=== PATIENT | female | born 1935 | race Caucasian/White ===

== ENCOUNTER → 2016-03-17 | Outpatient (CLI) | payer MEDICARE, OTHER | LOC: RAD 17:44 | PROVIDERS: ATTEND Physician Assistant | DX: S09.90XA Unspecified injury of head, initial encounter (principal); X58.XXXA Exposure to other specified factors, initial encounter; Y93.9 Activity, unspecified; Y92.9 Unspecified place or not applicable | CPT/HCPCS: 70450 ==

== ENCOUNTER → 2017-09-14 | Outpatient (CLI) | payer MEDICARE ==
[2017-09-14 16:35] LABS: ABSOLUTE EOSINOPHILS # (AUTO) 0.3 10^3/uL (0.0-0.6); ABSOLUTE LYMPHOCYTES (AUTO) 1.9 10^3/uL (0.5-4.7); ABSOLUTE MONOCYTES (AUTO) 0.6 10^3/uL (0.1-1.4); ABSOLUTE NEUT (AUTO) 3.6 10^3/uL (1.7-8.2); BASOPHILS % (AUTO) 0.6 % (0-2); EOSINOPHILS % (AUTO) 4.9 % (0-6); HEMATOCRIT 40.6 % (36.0-47.0); HEMOGLOBIN 13.9 g/dL (12.0-15.5); MEAN CORPUSCULAR HEMOGLOBIN 31.1 pg (27.0-33.4); MEAN CORPUSCULAR HGB CONC 34.2 g/dL (32.0-36.0); MEAN CORPUSCULAR VOLUME 91 fl (80-97); MONOCYTES % (AUTO) 8.6 % (3-13); PLATELET COUNT 231 10^3/uL (150-450); RED BLOOD COUNT 4.46 10^6/uL (3.72-5.28); RED CELL DISTRIBUTION WIDTH 14.4 % (11.5-14.0); SEGMENTED NEUTROPHILS % (AUTO) 55.9 % (42-78); TOTAL CELLS COUNTED % (AUTO) 100 %; WHITE BLOOD COUNT 6.4 10^3/uL (4.0-10.5)
[2017-09-14 16:59] LABS: ALANINE AMINOTRANSFERASE 28 U/L (9-52); ALBUMIN 4.7 g/dL (3.5-5.0); ALKALINE PHOSPHATASE 70 U/L (38-126); ANION GAP 16 (5-19); ASPARTATE AMINO TRANSFERASE 19 U/L (14-36); BILIRUBIN,DIRECT 0.3 mg/dL (0.0-0.4); BILIRUBIN,TOTAL 0.9 mg/dL (0.2-1.3); BLOOD UREA NITROGEN 13 mg/dL (7-20); CARBON DIOXIDE 23 mmol/L (22-30); CHLORIDE 104 mmol/L (98-107); CHOLESTEROL 141.13 mg/dL (0-200); GLUCOSE 97 mg/dL (75-110); POTASSIUM 4.1 mmol/L (3.6-5.0); TOTAL PROTEIN 8.3 g/dL (6.3-8.2); TRIGLYCERIDES 227 mg/dL (<150)
[2017-09-14 17:11] LABS: DIRECT LDL 69 mg/dL (<100)
[2017-09-14 17:51] LABS: VLDL CHOLESTEROL 45.4 mg/dL (10-31)
[2017-09-14 18:14] LABS: FREE T3 3.52 pg/mL (2.77-5.27); FREE T4 (FREE THYROXINE) 1.07 ng/dL (0.78-2.19)
[2017-09-14 18:28] LABS: THYROID STIMULATING HORMONE 2.06 uIU/mL (0.47-4.68)
== END ==
LOC: OD 15:53
PROVIDERS: ATTEND Family Medicine
DX: D64.9 Anemia, unspecified (principal); E03.9 Hypothyroidism, unspecified; E78.2 Mixed hyperlipidemia; I10 Essential (primary) hypertension
CPT/HCPCS: 36415; 80053; 80061; 82306; 82607; 84439; 84443; 84481; 85025

== ENCOUNTER 2017-09-16 23:08 | Emergency (ER) | payer MEDICARE ==
[2017-09-17] MEDS ORDERED: ACETAMINOPHEN 325 MG TABLET PO ONE (00:31)
--- NOTE | 2017-09-17 00:36 | ER Document Report ---
ED Medical Screen (RME) - General Chief Complaint: Back Injury Stated Complaint: FALL/HEAD INJURY Time Seen by Provider: 09/17/17 00:27 Mode of Arrival: Ambulatory Information source: Patient Notes: Patient is an 82-year-old female with history of stroke who presents to the ER today for low back pain and headache after she fell down a few stairs tonight. Patient states that because of her history of stroke she sometimes loses her footing and that is what happened tonight. Patient did not lose consciousness, is not on any blood thinners but is complaining of some pain to the back of the head. TRAVEL OUTSIDE OF THE [place] IN LAST 30 DAYS: No - Related Data Allergies/Adverse Reactions: No Known Allergies Allergy (Unverified 09/17/17 00:21) Past Medical History - General Information source: Patient - Social History Frequency of alcohol use: None Drug Abuse: None Renal/ Medical History: Denies: Hx Peritoneal Dialysis Review of Systems - Review of Systems Musculoskeletal: See HPI Neurological/Psychological: See HPI Physical Exam - Vital signs Vitals: Temp Pulse Resp BP Pulse Ox 97.7 F 115 H 18 171/84 H 99 09/16/17 23:14 09/16/17 23:14 09/16/17 23:14 09/16/17 23:14 09/16/17 23:14 - Notes Notes: PHYSICAL EXAMINATION: GENERAL: Well-appearing and in no acute distress. HEAD: mild occipital tenderness, otherwise Atraumatic, normocephalic. NEUROLOGICAL: Cranial nerves grossly intact. Normal sensory/motor exams. Course - Vital Signs Vital signs: Temp Pulse Resp BP Pulse Ox 97.7 F 115 H 18 171/84 H 99 09/16/17 23:14 09/16/17 23:14 09/16/17 23:14 09/16/17 23:14 09/16/17 23:14 Doctor's Discharge - Discharge Referrals: GINA LOERA DO [Primary Care Provider] - Follow up as needed
--- NOTE | 2017-09-17 00:55 | RADIOLOGY REPORT (SQ) ---
EXAM DESCRIPTION: CT HEAD WITHOUT IV CONTRAST COMPLETED DATE/TME: 09/17/2017 00:29 EXAM DESCRIPTION: CT of the head without contrast CLINICAL HISTORY: fall, back pain, head injury COMPARISON: 03/17/2016 TECHNIQUE: Axial CT of the head obtained from the skull apex to the skull base without contrast. FINDINGS: No acute intracranial hemorrhage identified. No mass, mass effect, shift of the midline, abnormal extra-axial fluid collection or CT evidence of acute ischemic change identified. The ventricular system and sulcal spaces are mildly enlarged compatible with mild cerebral atrophy. Scattered areas of hypodensity throughout the supratentorial white matter are nonspecific and may be related to chronic small vessel ischemic change. Remote lacunar type infarction involving the left basal ganglia. The visualized paranasal sinuses and the mastoids are clear. No skull fracture identified. Visualized orbits and globes are unremarkable. Atherosclerotic calcification of the intracranial internal carotid arteries. DLP: 990.56 mGy-cm IMPRESSION: 1. No acute intracranial abnormality by CT criteria. This exam was performed according to our departmental dose-optimization program, which includes automated exposure control, adjustment of the mA and/or kV according to patient size and/or use of iterative reconstruction technique.
--- NOTE | 2017-09-17 01:31 | RADIOLOGY REPORT (SQ) ---
EXAM DESCRIPTION: XR LUMBAR SPINE ANTEROPOSTERIOR, LATERAL, AND OBLIQUES COMPLETED DATE/TME: 09/17/2017 00:29 CLINICAL HISTORY: 82 years, Female, fall, back pain, head injury COMPARISON: None. FINDINGS: 4 views of the lumbar spine. Mild dextroconvex scoliosis of the lumbar spine. Postoperative change overlying the abdomen. Prior cholecystectomy. Osteopenia. Pedicles identified throughout. Mild loss of intervertebral disc height with endplate spondylosis. Vertebral body height preserved. No cortical step-offs or subluxation. Aortoiliac atherosclerosis. IMPRESSION: No acute abnormalities of the lumbar spine by plain film criteria. 2010 [email or web address]- All Rights Reserved
[2017-09-17] MEDS ORDERED: LIDOCAINE 5% (700 MG) TRANSDERMAL ADH..PATCH TP ONE (02:20)
--- NOTE | 2017-09-17 02:24 | ER Document Report ---
ED General - General Chief Complaint: Back Injury Stated Complaint: FALL/HEAD INJURY Time Seen by Provider: 09/17/17 00:27 Mode of Arrival: Ambulatory Information source: Patient Notes: Patient is an 82-year-old female with history of stroke who presents to the ER today for low back pain and headache after she fell down a few stairs tonight. Patient states that because of her history of stroke she sometimes loses her footing and that is what happened tonight. Patient did not lose consciousness, is not on any blood thinners but is complaining of some pain to the back of the head. TRAVEL OUTSIDE OF THE [place] IN LAST 30 DAYS: No - Related Data Allergies/Adverse Reactions: No Known Allergies Allergy (Unverified 09/17/17 00:21) Past Medical History - General Information source: Patient - Social History Smoking Status: Never Smoker Frequency of alcohol use: None Drug Abuse: None Lives with: Spouse/Significant other Family History: Reviewed & Not Pertinent Patient has suicidal ideation: No Patient has homicidal ideation: No Neurological Medical History: Reports: Hx Cerebrovascular Accident Renal/ Medical History: Denies: Hx Peritoneal Dialysis Review of Systems - Review of Systems Constitutional: No symptoms reported EENT: No symptoms reported Cardiovascular: No symptoms reported Respiratory: No symptoms reported Gastrointestinal: No symptoms reported Genitourinary: No symptoms reported Female Genitourinary: No symptoms reported Musculoskeletal: See HPI Skin: No symptoms reported Hematologic/Lymphatic: No symptoms reported Neurological/Psychological: See HPI Physical Exam - Vital signs Vitals: Temp Pulse Resp BP Pulse Ox 97.7 F 115 H 18 171/84 H 99 09/16/17 23:14 09/16/17 23:14 09/16/17 23:14 09/16/17 23:14 09/16/17 23:14 - Notes Notes: PHYSICAL EXAMINATION: GENERAL: Well-appearing, well-nourished and in no acute distress. HEAD: Atraumatic, normocephalic. EYES: Pupils equal round and reactive to light, extraocular movements intact, sclera anicteric, conjunctiva are normal. ENT: nares patent, oropharynx clear without exudates. Moist mucous membranes. NECK: Normal range of motion, supple without lymphadenopathy LUNGS: Breath sounds clear to auscultation bilaterally and equal. No wheezes rales or rhonchi. HEART: Regular rate and rhythm without murmurs ABDOMEN: Soft, nontender, normoactive bowel sounds. No guarding, no rebound. No masses appreciated. EXTREMITIES: Normal range of motion, no pitting or edema. No cyanosis. NEUROLOGICAL: No focal neurological deficits. Moves all extremities spontaneously and on command. PSYCH: Normal mood, normal affect. SKIN: Warm, Dry, normal turgor, no rashes or lesions noted. Course - Re-evaluation Re-evalutation: Patient is alert and oriented, at bedside. Patient remembers the fall, denies any LOC. Lumber xray and head CT with no acute findings, patient physical exam is normal, will place lidoderm patch to area of tenderness at lumbar spine and send with prescription for same. Vitals signs improved from time of check in. - Vital Signs Vital signs: Temp Pulse Resp BP Pulse Ox 97.1 F 91 18 135/76 H 99 09/17/17 02:42 09/17/17 02:42 09/17/17 02:42 09/17/17 02:42 09/16/17 23:14 Discharge - Discharge Clinical Impression: mechanical fall , Lumbar back pain Condition: Stable Disposition: HOME, SELF-CARE Additional Instructions: Your x-rays today were normal. Please follow-up with your primary care provider in the next 2-3 days for follow-up. Use the instructions as outlined below to help with the discomfort. Take ibuprofen 600 mg every 6 hours for pain. Use the Lidoderm patches as directed. Return to the emergency department for any additional concerns. LOW BACK PAIN: Three out of every four people will have an episode of disabling back pain during their lifetime. Most commonly the pain is due to straining of the muscles and ligaments in the low back. Usual treatment includes: (1) Rest on a firm surface. Avoid lying on your stomach. (2) Ice pack the painful area. After a few days, gentle heat may be used intermittently to relax the area, or ice packs can be continued. (3) Medication may be needed -- muscle relaxers and antiinflammatory medicines are commonly used. (4) As the back improves, exercises are prescribed to strengthen the back and abdominal muscles. Your doctor will advise you on the proper care for your back at each stage in your recovery. You may be better in a few days -- or healing may take several weeks. If new symptoms of a "herniated disc" (radiation of pain, numbness, or tingling down the back of the leg or weakness in the leg) occur, you should be re-examined. Further testing may be necessary. ICE PACKS: Apply ice packs frequently against the painful area. Many different schedules are recommended, such as "20 minutes on, 20 minutes off" or "one hour ice, two hours rest." If you need to work, you may need to go longer between ice treatments. You should plan to have the area ice packed AT LEAST one fourth of the time. The ice should be applied over the wrap, tape, or splint, or over a layer of cloth -- not directly against the skin. Some ice bags have a built-in cloth and can be put directly on the skin. WARM PACKS: After approximately two days, apply gentle heat (such as a heating pad or hot water bottle) for about 20 to 30 minutes about every two hours -- at least four times daily. Warmth and elevation will help you make a more rapid recovery , and will ease the pain considerably. Do not use HOT heat, and never apply heat for longer than 30 minutes. The continuous heat can invisibly damage skin and muscles -- even when no burn is seen on the surface. Damaged muscles can make you MORE sore. FOLLOW-UP CARE: If you have been referred to a physician for follow-up care, call the physician s office for an appointment as you were instructed or within the next two days. If you experience worsening or a significant change in your symptoms, notify the physician immediately or return to the Emergency Department at any time for re-evaluation. Prescriptions: Lidocaine [Lidoderm 5% (700 mg) Transdermal Patch] 1 patch TP DAILY #30 adh..patch Referrals: GINA LOERA DO [Primary Care Provider] - Follow up as needed
[2017-09-17 02:43] VITALS: BP 135/76
== END 2017-09-17 02:41 | disposition home or self-care (01) ==
LOC: ER 23:08
DX: M54.5 Low back pain (principal); R51 Headache; W10.8XXA Fall (on) (from) other stairs and steps, initial encounter; Z86.73 Personal history of transient ischemic attack (TIA), and cerebral infarction without residual deficits
CPT/HCPCS: 99284; 72110; 70450; A9270

== ENCOUNTER → 2018-03-01 | Outpatient (CLI) | payer MEDICARE ==
--- NOTE | 2018-03-01 16:41 | RADIOLOGY REPORT (SQ) ---
EXAM DESCRIPTION: LUMBAR SPINE COMPLETE COMPLETED DATE/TIME: 03/01/2018 4:28 pm REASON FOR STUDY: LUMBOSACRAL PAIN;THORACIC BACK PAIN M54.5 LOW BACK PAIN M54.6 PAIN IN THORACIC S PINE COMPARISON: 09/17/2017 NUMBER OF VIEWS: Five views including obliques. TECHNIQUE: AP, lateral, oblique, and sacral radiographic images acquired of the lumbar spine. LIMITATIONS: None. FINDINGS: MINERALIZATION: Normal. SEGMENTATION: Normal. No transitional anatomy. ALIGNMENT: Normal. VERTEBRAE: Maintained height. No fracture or worrisome bone lesion. DISCS: Multilevel disc space narrowing with osteophytes. POSTERIOR ELEMENTS: Pedicles and facets are intact. No pars defect or posterior arch defects. Facet arthropathy is present. HARDWARE: None in the spine. PARASPINAL SOFT TISSUES: Normal. PELVIS: Intact as visualized. No fractures or worrisome bone lesions. SI joints intact. OTHER: No other significant finding. IMPRESSION: SPONDYLOSIS WITHOUT BONE LESION OR FRACTURE. TECHNICAL DOCUMENTATION: JOB ID: [id number] [employer]- All Rights Reserved Reading location - IP/workstation name: [email or web address]
--- NOTE | 2018-03-01 16:42 | RADIOLOGY REPORT (SQ) ---
EXAM DESCRIPTION: T SPINE AP/LAT COMPLETED DATE/TIME: 03/01/2018 4:28 pm REASON FOR STUDY: LUMBOSACRAL PAIN;THORACIC BACK PAIN M54.5 LOW BACK PAIN M54.6 PAIN IN THORACIC S PINE COMPARISON: None. NUMBER OF VIEWS: Two views. TECHNIQUE: AP and lateral radiographic images acquired of the thoracic spine. LIMITATIONS: None. FINDINGS: MINERALIZATION: Osteopenia. ALIGNMENT: Mild sigmoid scoliosis. VERTEBRAE: Mild compression superior endplate T11 unchanged from 09/17/2017. DISCS: Multilevel disc space narrowing with osteophytes. HARDWARE: None in the spine. MEDIASTINUM AND SOFT TISSUES: Normal heart size and aortic contour. No soft tissue abnormality. VISUALIZED LUNG MESA: Clear. OTHER: No other significant finding. IMPRESSION: Spondylosis. No acute findings. TECHNICAL DOCUMENTATION: JOB ID: [id number] [employer]- All Rights Reserved Reading location - IP/workstation name: [email or web address]
== END ==
LOC: OD 16:05
PROVIDERS: ATTEND Family Medicine
DX: M54.5 Low back pain (principal); M54.6 Pain in thoracic spine; M47.894 Other spondylosis, thoracic region
CPT/HCPCS: 72070; 72110